=== PATIENT | male | born 1955 | race Caucasian/White ===

== ENCOUNTER 2018-07-22 17:33 | Emergency (ER) | payer MEDICARE ==
[2018-07-22] MEDS: ONDANSETRON 4 MG INJ IV (18:07)
[2018-07-22] MEDS: HYDROmorphONE 0.5 MG/0.5 ML SYG IV (18:07)
[2018-07-22 18:21] LABS: ADD MAN DIFF? NO
[2018-07-22 18:22] LABS: WHITE BLOOD COUNT 7.7 10^3/ul (4.8-10.8)
[2018-07-22 18:22] LABS: BASOPHIL # 0.1 10^3/ul (0.0-0.1); BASOPHILS % 0.9 % (0.0-2.0); EOSINOPHILS # 0.1 10^3/ul (0.0-0.5); EOSINOPHILS % 1.3 % (0.0-7.0); HEMATOCRIT 41.6 % (42.0-52.0); HEMOGLOBIN 12.8 g/dl (14.0-18.0); LYMPHOCYTES # 1.1 10^3/ul (0.8-2.9); LYMPHOCYTES % 14.7 % (15.0-51.0); MEAN CORPUSCULAR HEMOGLOBIN 26.9 pg (29.0-33.0); MEAN CORPUSCULAR HGB CONC 30.8 g/dl (32.0-37.0); MEAN CORPUSCULAR VOLUME 87.6 fl (82.0-101.0); MEAN PLATELET VOLUME 10.1 fl (7.4-10.4); MONOCYTE # 0.7 10^3/ul (0.3-0.9); MONOCYTES % 9.6 % (0.0-11.0); NEUTROPHIL # 5.7 10^3/ul (1.6-7.5); NEUTROPHILS % 73.2 % (39.0-77.0); PLATELET COUNT 239 10^3/UL (140-415); RED BLOOD COUNT 4.75 10^6/ul (4.70-6.10); RED CELL DISTRIBUTION WIDTH 17.2 % (11.5-14.5)
[2018-07-22 18:39] LABS: ALANINE AMINOTRANSFERASE 18 IU/L (13-69); ALBUMIN 3.7 g/dl (3.3-4.9); ALKALINE PHOSPHATASE 70 IU/L (42-121); ANION GAP 11 (5-13); ASPARTATE AMINO TRANSFERASE 21 IU/L (15-46); BILIRUBIN,INDIRECT 0.5 mg/dl (0-1.1); BILIRUBIN,TOTAL 0.5 mg/dl (0.2-1.3); BLOOD UREA NITROGEN 29 mg/dl (7-20); CARBON DIOXIDE 26 mmol/L (21-31); CHLORIDE 103 mmol/L (97-110); CREATININE 0.72 mg/dl (0.61-1.24); GLUCOSE 113 mg/dl (70-220); LIPASE 134 U/L (23-300); POTASSIUM 4.6 mmol/L (3.5-5.1); SODIUM 140 mmol/L (135-144); TOTAL PROTEIN 7.4 g/dl (6.1-8.1)
[2018-07-22 18:40] LABS: Estimated GFR > 60 mL/min (>60)
[2018-07-22 18:51] LABS: TROPONIN-I 0.019 ng/ml (0.000-0.120)
[2018-07-22] MEDS: KETOROLAC 30 MG INJ IV (19:49)
[2018-07-22] MEDS: NICARDipine HCL 30 MG CAPSULE PO (20:08)
== END 2018-07-22 20:20 | disposition home or self-care (01) ==
LOC: E/R 17:33
DX: N23 Unspecified renal colic (principal); K40.90 Unilateral inguinal hernia, without obstruction or gangrene, not specified as recurrent; I10 Essential (primary) hypertension; Z79.82 Long term (current) use of aspirin
CPT/HCPCS: 74176; 80053; 83690; 84484; 85025; 93005; 96374; 96375; 99285-25

== ENCOUNTER 2018-12-25 15:55 | Inpatient (IN) | payer MEDICARE ==
[2018-12-25 17:30] LABS: ADD MAN DIFF? NO
[2018-12-25] MEDS: FUROSEMIDE 40 MG INJ IV ×2 (17:32→21:00)
[2018-12-25] MEDS: NITROGLYCERIN (SL) 0.4 MG TAB SL (17:33)
[2018-12-25] MEDS: ASPIRIN 81 MG TAB PO (17:33)
[2018-12-25] MEDS: ENALAPRILAT 1.25 MG INJ IV (17:33)
[2018-12-25 17:34] LABS: WHITE BLOOD COUNT 6.8 10^3/ul (4.8-10.8)
[2018-12-25 17:34] LABS: ABNORMAL IP MESSAGE 1; BASOPHIL # 0.1 10^3/ul (0.0-0.1); EOSINOPHILS # 0.1 10^3/ul (0.0-0.5); EOSINOPHILS % 1.2 % (0.0-7.0); HEMATOCRIT 36.5 % (42.0-52.0); HEMOGLOBIN 10.2 g/dl (14.0-18.0); LYMPHOCYTES % 14.9 % (15.0-51.0); MEAN CORPUSCULAR HEMOGLOBIN 22.5 pg (29.0-33.0); MEAN CORPUSCULAR HGB CONC 27.9 g/dl (32.0-37.0); MEAN CORPUSCULAR VOLUME 80.6 fl (82.0-101.0); MONOCYTE # 0.6 10^3/ul (0.3-0.9); MONOCYTES % 8.8 % (0.0-11.0); PLATELET COUNT 224 10^3/UL (140-415); POSITIVE DIFF @See below; RED BLOOD COUNT 4.53 10^6/ul (4.70-6.10); RED CELL DISTRIBUTION WIDTH 16.4 % (11.5-14.5)
[2018-12-25 17:53] LABS: ALANINE AMINOTRANSFERASE 22 IU/L (13-69); ALBUMIN 3.8 g/dl (3.3-4.9); ALBUMIN/GLOBULIN RATIO 1.18; ALKALINE PHOSPHATASE 94 IU/L (42-121); ANION GAP 11 (5-13); ASPARTATE AMINO TRANSFERASE 21 IU/L (15-46); BILIRUBIN,INDIRECT 1.3 mg/dl (0-1.1); BILIRUBIN,TOTAL 1.3 mg/dl (0.2-1.3); BLOOD UREA NITROGEN 19 mg/dl (7-20); CALCIUM 8.9 mg/dl (8.4-10.2); CARBON DIOXIDE 29 mmol/L (21-31); CHLORIDE 102 mmol/L (97-110); CREATININE 0.57 mg/dl (0.61-1.24); Estimated GFR > 60 mL/min (>60); GLUCOSE 103 mg/dl (70-220); LIPASE 76 U/L (23-300); POTASSIUM 4.7 mmol/L (3.5-5.1); SODIUM 142 mmol/L (135-144)
[2018-12-25 18:06] LABS: B-TYPE NATRIURETIC PEPTIDE 2200 PG/ML (0-125); TROPONIN-I 0.017 ng/ml (0.000-0.120)
[2018-12-25] MEDS ORDERED: ONDANSETRON 4 MG INJ IV (19:00)
[2018-12-25] MEDS ORDERED: hydrALAzine 20 MG INJ IV (19:00)
[2018-12-25] MEDS ORDERED: MAGNESIUM HYDROXIDE 30ML CUP PO (19:00)
[2018-12-25] MEDS ORDERED: NITROGLYCERIN (SL) 0.4 MG TAB SL (19:00)
[2018-12-25] MEDS ORDERED: NACL 0.9% 3 ML SYG IV (19:00)
[2018-12-25] MEDS ORDERED: DOCUSATE SODIUM 100 MG CAP PO (19:00)
[2018-12-25] MEDS ORDERED: ACETAMINOPHEN 325 MG TAB PO (19:00)
[2018-12-25] MEDS ORDERED: ALBUTEROL/IPRATROPIUM (NEB) 3 ML AMP HHN (19:00)
[2018-12-25] MEDS: HYDROCODONE/APAP (5/325) TAB PO (21:41)
[2018-12-25] MEDS: ZOLPIDEM 5 MG TAB PO (23:39)
[2018-12-25] MEDS: HEPARIN 5,000 UNIT/1 ML VIAL SC (23:48)
[2018-12-26] MEDS: PANTOPRAZOLE (EC) 40 MG TAB PO (06:01)
[2018-12-26] MEDS: FUROSEMIDE 40 MG INJ IV (06:02)
[2018-12-26 06:20] LABS: ADD MAN DIFF? NO
[2018-12-26 06:26] LABS: ABNORMAL IP MESSAGE 1; BASOPHIL # 0.1 10^3/ul (0.0-0.1); BASOPHILS % 1.6 % (0.0-2.0); EOSINOPHILS # 0.1 10^3/ul (0.0-0.5); EOSINOPHILS % 1.9 % (0.0-7.0); HEMATOCRIT 33.9 % (42.0-52.0); HEMOGLOBIN 9.7 g/dl (14.0-18.0); LYMPHOCYTES # 1.3 10^3/ul (0.8-2.9); MEAN CORPUSCULAR HEMOGLOBIN 22.8 pg (29.0-33.0); MEAN CORPUSCULAR HGB CONC 28.6 g/dl (32.0-37.0); MEAN CORPUSCULAR VOLUME 79.8 fl (82.0-101.0); MEAN PLATELET VOLUME 10.3 fl (7.4-10.4); MONOCYTE # 0.6 10^3/ul (0.3-0.9); MONOCYTES % 10.4 % (0.0-11.0); NEUTROPHIL # 3.6 10^3/ul (1.6-7.5); NEUTROPHILS % 62.8 % (39.0-77.0); PLATELET COUNT 204 10^3/UL (140-415); POSITIVE DIFF @See below; RED BLOOD COUNT 4.25 10^6/ul (4.70-6.10); RED CELL DISTRIBUTION WIDTH 16.5 % (11.5-14.5)
[2018-12-26 06:26] LABS: WHITE BLOOD COUNT 5.8 10^3/ul (4.8-10.8)
[2018-12-26 06:51] LABS: CHOLESTEROL 98 mg/dl (100-200)
[2018-12-26 06:51] LABS: CHOL/HDL RATIO 2.9 RATIO; HDL CHOLESTEROL 33 mg/dl (30-78); LDL CHOLESTEROL,CALCULATED 57 mg/dl; TRIGLYCERIDES 39 mg/dl (0-149)
[2018-12-26 06:58] LABS: ANION GAP 9 (5-13); BLOOD UREA NITROGEN 24 mg/dl (7-20); CALCIUM 8.7 mg/dl (8.4-10.2); CARBON DIOXIDE 30 mmol/L (21-31); CHLORIDE 103 mmol/L (97-110); GLUCOSE 88 mg/dl (70-220); MAGNESIUM 1.8 mg/dl (1.7-2.5); PHOSPHORUS 4.1 mg/dl (2.5-4.9); POTASSIUM 3.9 mmol/L (3.5-5.1); SODIUM 142 mmol/L (135-144)
[2018-12-26 06:59] LABS: CREATININE 0.63 mg/dl (0.61-1.24); Estimated GFR > 60 mL/min (>60)
[2018-12-26 07:10] LABS: FREE T4 (FREE THYROXINE) 1.37 ng/dl (0.78-2.44)
[2018-12-26 07:37] LABS: HEMOGLOBIN A1C 6.1 % (0-5.9)
[2018-12-26] MEDS ORDERED: FUROSEMIDE 40 MG INJ IV (09:00)
[2018-12-26] MEDS: LEVOFLOXACIN 750MG/D5W (PMX) 150 ML IVPB (09:32)
[2018-12-26] MEDS: HEPARIN 5,000 UNIT/1 ML VIAL SC ×2 (09:33→21:00)
[2018-12-26 10:42] LABS: CREATINE KINASE 32 IU/L (23-200)
[2018-12-26 11:01] LABS: CK INDEX 4.2; CK-MB 1.33 ng/ml (0.0-2.4); TROPONIN-I 0.019 ng/ml (0.000-0.120)
[2018-12-26] MEDS: MAGNESIUM SULFATE 2 GM/50 ML 50 ML IVPB (11:52)
[2018-12-26] MEDS: BUMETANIDE 1 MG INJ IV (11:54)
[2018-12-26] MEDS: BUMETANIDE 3 MG in DEXTROSE 5% 18 ML IV (11:54)
[2018-12-26] MEDS: HYDROCODONE/APAP (5/325) TAB PO (12:06)
[2018-12-26] MEDS: ZOLPIDEM 5 MG TAB PO (20:55)
[2018-12-26] MEDS: LISINOPRIL 5 MG TAB PO (20:55)
[2018-12-26] MEDS: LORAZEPAM 2 MG INJ IV (22:10)
[2018-12-27] MEDS: PANTOPRAZOLE (EC) 40 MG TAB PO (06:14)
[2018-12-27] MEDS: FUROSEMIDE 40 MG INJ IV ×2 (06:15→17:26)
[2018-12-27 06:20] LABS: ADD MAN DIFF? NO
[2018-12-27 06:25] LABS: ABNORMAL IP MESSAGE 1; BASOPHIL # 0.1 10^3/ul (0.0-0.1); BASOPHILS % 1.2 % (0.0-2.0); EOSINOPHILS # 0.2 10^3/ul (0.0-0.5); EOSINOPHILS % 2.5 % (0.0-7.0); HEMATOCRIT 34.4 % (42.0-52.0); HEMOGLOBIN 9.7 g/dl (14.0-18.0); LYMPHOCYTES # 1.2 10^3/ul (0.8-2.9); LYMPHOCYTES % 19.9 % (15.0-51.0); MEAN CORPUSCULAR HEMOGLOBIN 22.4 pg (29.0-33.0); MEAN CORPUSCULAR HGB CONC 28.2 g/dl (32.0-37.0); MEAN CORPUSCULAR VOLUME 79.4 fl (82.0-101.0); MEAN PLATELET VOLUME 10.2 fl (7.4-10.4); MONOCYTE # 0.6 10^3/ul (0.3-0.9); MONOCYTES % 10.2 % (0.0-11.0); PLATELET COUNT 211 10^3/UL (140-415); POSITIVE DIFF @See below; RED BLOOD COUNT 4.33 10^6/ul (4.70-6.10); RED CELL DISTRIBUTION WIDTH 16.4 % (11.5-14.5)
[2018-12-27 06:25] LABS: WHITE BLOOD COUNT 6.1 10^3/ul (4.8-10.8)
[2018-12-27 07:07] LABS: ANION GAP 5 (5-13); BLOOD UREA NITROGEN 27 mg/dl (7-20); CALCIUM 8.7 mg/dl (8.4-10.2); CARBON DIOXIDE 35 mmol/L (21-31); CHLORIDE 98 mmol/L (97-110); CREATININE 0.69 mg/dl (0.61-1.24); Estimated GFR > 60 mL/min (>60); GLUCOSE 97 mg/dl (70-220); POTASSIUM 3.8 mmol/L (3.5-5.1); SODIUM 138 mmol/L (135-144)
[2018-12-27] MEDS: LISINOPRIL 5 MG TAB PO ×2 (08:43→20:22)
[2018-12-27] MEDS: HEPARIN 5,000 UNIT/1 ML VIAL SC ×2 (08:46→20:28)
[2018-12-27] MEDS: LEVOFLOXACIN 750MG/D5W (PMX) 150 ML IVPB (09:12)
[2018-12-27] MEDS: HYDROCODONE/APAP (5/325) TAB PO (10:23)
[2018-12-27] MEDS: FUROSEMIDE 40 MG TAB PO (17:42)
[2018-12-27] MEDS: SPIRONOLACTONE 25 MG TAB PO (17:49)
[2018-12-27] MEDS: ZOLPIDEM 5 MG TAB PO (20:23)
[2018-12-28] MEDS: PANTOPRAZOLE (EC) 40 MG TAB PO (06:00)
[2018-12-28] MEDS: FUROSEMIDE 40 MG TAB PO (06:01)
[2018-12-28 06:54] LABS: ADD MAN DIFF? NO
[2018-12-28 06:58] LABS: ABNORMAL IP MESSAGE 1; BASOPHIL # 0.1 10^3/ul (0.0-0.1); BASOPHILS % 1.1 % (0.0-2.0); EOSINOPHILS # 0.2 10^3/ul (0.0-0.5); EOSINOPHILS % 2.5 % (0.0-7.0); HEMATOCRIT 34.1 % (42.0-52.0); HEMOGLOBIN 9.7 g/dl (14.0-18.0); LYMPHOCYTES # 1.4 10^3/ul (0.8-2.9); LYMPHOCYTES % 22.7 % (15.0-51.0); MEAN CORPUSCULAR HEMOGLOBIN 22.6 pg (29.0-33.0); MEAN CORPUSCULAR HGB CONC 28.4 g/dl (32.0-37.0); MEAN CORPUSCULAR VOLUME 79.3 fl (82.0-101.0); MEAN PLATELET VOLUME 10.1 fl (7.4-10.4); MONOCYTE # 0.7 10^3/ul (0.3-0.9); MONOCYTES % 11.9 % (0.0-11.0); NEUTROPHIL # 3.8 10^3/ul (1.6-7.5); NEUTROPHILS % 61.5 % (39.0-77.0); PLATELET COUNT 229 10^3/UL (140-415); POSITIVE DIFF @See below; RED CELL DISTRIBUTION WIDTH 16.4 % (11.5-14.5)
[2018-12-28 06:58] LABS: WHITE BLOOD COUNT 6.1 10^3/ul (4.8-10.8)
[2018-12-28 07:25] LABS: MAGNESIUM 1.8 mg/dl (1.7-2.5)
[2018-12-28 07:27] LABS: ANION GAP 5 (5-13); BLOOD UREA NITROGEN 25 mg/dl (7-20); CALCIUM 8.9 mg/dl (8.4-10.2); CARBON DIOXIDE 36 mmol/L (21-31); CHLORIDE 97 mmol/L (97-110); CREATININE 0.82 mg/dl (0.61-1.24); Estimated GFR > 60 mL/min (>60); GLUCOSE 95 mg/dl (70-220); POTASSIUM 3.9 mmol/L (3.5-5.1); SODIUM 138 mmol/L (135-144)
[2018-12-28 07:30] LABS: B-TYPE NATRIURETIC PEPTIDE 791 PG/ML (0-125)
[2018-12-28 07:34] LABS: FREE T4 (FREE THYROXINE) 1.18 ng/dl (0.78-2.44)
[2018-12-28] MEDS: LISINOPRIL 5 MG TAB PO (08:15)
[2018-12-28] MEDS: LEVOFLOXACIN 750MG/D5W (PMX) 150 ML IVPB (08:15)
[2018-12-28] MEDS: SPIRONOLACTONE 25 MG TAB PO (08:16)
[2018-12-28] MEDS: HEPARIN 5,000 UNIT/1 ML VIAL SC ×2 (08:46→20:42)
[2018-12-28] MEDS: morphine 2 MG INJ IV (11:03)
[2018-12-28] MEDS: LISINOPRIL 10 MG TAB PO (20:08)
[2018-12-28] MEDS: ZOLPIDEM 5 MG TAB PO (20:15)
[2018-12-29] MEDS: PANTOPRAZOLE (EC) 40 MG TAB PO (06:34)
[2018-12-29] MEDS: LEVOFLOXACIN 750 MG TABLET PO (06:34)
[2018-12-29 06:44] LABS: ADD MAN DIFF? NO
[2018-12-29 06:47] LABS: ABNORMAL IP MESSAGE 1; BASOPHIL # 0.1 10^3/ul (0.0-0.1); EOSINOPHILS # 0.1 10^3/ul (0.0-0.5); HEMATOCRIT 34.3 % (42.0-52.0); HEMOGLOBIN 9.7 g/dl (14.0-18.0); LYMPHOCYTES # 1.5 10^3/ul (0.8-2.9); LYMPHOCYTES % 24.3 % (15.0-51.0); MEAN CORPUSCULAR HEMOGLOBIN 22.2 pg (29.0-33.0); MEAN CORPUSCULAR HGB CONC 28.3 g/dl (32.0-37.0); MEAN CORPUSCULAR VOLUME 78.7 fl (82.0-101.0); MEAN PLATELET VOLUME 8.7 fl (7.4-10.4); MONOCYTE # 0.7 10^3/ul (0.3-0.9); MONOCYTES % 11.5 % (0.0-11.0); NEUTROPHIL # 3.7 10^3/ul (1.6-7.5); PLATELET COUNT 222 10^3/UL (140-415); POSITIVE DIFF @See below; RED BLOOD COUNT 4.36 10^6/ul (4.70-6.10); RED CELL DISTRIBUTION WIDTH 16.3 % (11.5-14.5)
[2018-12-29 07:07] LABS: ANION GAP 3 (5-13); BLOOD UREA NITROGEN 27 mg/dl (7-20); CALCIUM 9.1 mg/dl (8.4-10.2); CARBON DIOXIDE 35 mmol/L (21-31); CHLORIDE 101 mmol/L (97-110); CREATININE 0.91 mg/dl (0.61-1.24); Estimated GFR > 60 mL/min (>60); GLUCOSE 116 mg/dl (70-220); SODIUM 139 mmol/L (135-144)
[2018-12-29] MEDS: SPIRONOLACTONE 25 MG TAB PO (08:19)
[2018-12-29] MEDS: LISINOPRIL 10 MG TAB PO (08:21)
[2018-12-29] MEDS: FUROSEMIDE 40 MG TAB PO (08:21)
[2018-12-29] MEDS: HEPARIN 5,000 UNIT/1 ML VIAL SC (09:55)
== END 2018-12-29 14:42 | disposition home or self-care (01) | DRG 293 ==
LOC: TEL 12-26 16:34 → E/R 15:55 → MS3 18:11
DX: I11.0 Hypertensive heart disease with heart failure (principal); I50.33 Acute on chronic diastolic (congestive) heart failure; I34.0 Nonrheumatic mitral (valve) insufficiency; I16.0 Hypertensive urgency; Z91.14 Patient's other noncompliance with medication regimen
CPT/HCPCS: 36415; 71045; 80048; 80053; 80061; 82550; 82553; 83036; 83690; 83735; 83880; 84100; 84439; 84443; 84484; 85025; 92610; 93005; 93306; 96374; 96375; 99285-25